=== PATIENT | female | born 1960 | race Caucasian/White ===

== ENCOUNTER → 2023-07-02 | Outpatient (CLI) | payer OTHER ==
[~2023-07-02] MED LIST: CYAN1000I IM; ESTRADIOL1 EAC3 TD; Excedrin Extra1 EACH PO; Fruity C250 MG PO; Imitrex100 MG PO; MORP15ER PO; MYFERON 150150 MG PO; OMEPRAZOLE MAGN20 MG PO; PROG100 PO; Zanaflex4 M1 PO
== END ==
LOC: LAB SHORT 07:31 → PLD 07:31
DX: D48.5 Neoplasm of uncertain behavior of skin (principal)
CPT/HCPCS: 88305

== ENCOUNTER 2025-08-23 08:30 | Day surgery (SDC) | payer OTHER ==
[~2025-08-23] VITALS: Ht 165.1 cm; Wt 79.6 kg
[~2025-08-23 08:30] MED LIST changes: +Balanced Salt Epinephrine Irrigation Solution 500 mL IR SCH; +Moxifloxacin HCL 0.5 MG/0.1 ML 0.4MLSYR LEFTEYE SCH; +Ondansetron 4 MG SoluTab MM PRN; +PHENYLEPHRINE\\TROPICAMIDE\\TETRACAINE OPHTHALMIC DILATING SOLN LEFTEYE PRN; +Povidone-Iodine 450 DROP/30 ML Solution LEFTEYE SCH; +Povidone-Iodine 450 DROP/30 ML Solution ONE; +Tetracaine HCl/Pf 0.5% Opth Soln 4 ml ONE
--- NOTE | 2025-08-23 09:56 | NUR ---
08/23/25 0956 Monse Savage PT REPORTED ANXIETY LEVEL 0/10 PRIOR TO ADMINISTRATION OF VALIUM 10MG PO @0938. TETRACAINE IN AT 0938. PLEDGETT IN AT 0939. CALL LIGHT IN PT'S HAND. SPO2 AND HR MONITORING IN PLACE.
--- NOTE | 2025-08-23 10:04 | NUR ---
08/23/25 1004 Lora Monaco HR:60 RR:14 BP:151/81 SPO2:100% ON 10L BLOW BY O2
[2025-08-23 10:22] VITALS: BP 139/66
== END 2025-08-23 10:35 | disposition home or self-care (01) ==
LOC: ORSCSDS 08:30
PROVIDERS: Student in an Organized Health Care Education/Training Program
PROC: 08RK3JZ Replacement of Left Lens with Synthetic Substitute, Percutaneous Approach (ICD-10-PCS; principal; 2025-08-23 10:00)
DX: H25.812 Combined forms of age-related cataract, left eye (principal); Z96.1 Presence of intraocular lens
CPT/HCPCS: A9270; V2632